=== PATIENT | female | born 1990 | race Caucasian/White ===

== ENCOUNTER → 2021-05-02 | Emergency (ER) | payer SELFPAY ==
[~2021-05-02] VITALS: Ht 172.7 cm; Wt 70.0 kg
[2021-05-02 15:38] VITALS: BP 112/74
== END | disposition home or self-care (01) ==
LOC: ER 15:32
DX: S92.514A Nondisplaced fracture of proximal phalanx of right lesser toe(s), initial encounter for closed fracture (principal); X50.1XXA Overexertion from prolonged static or awkward postures, initial encounter; Y93.89 Activity, other specified; Y92.89 Other specified places as the place of occurrence of the external cause; Y99.8 Other external cause status
CPT/HCPCS: 73660; 99283